=== PATIENT | male | born 1955 | race Caucasian/White ===

== ENCOUNTER → 2021-08-08 | Outpatient (CLI) | payer MEDICARE | LOC: KOH-I 15:10 | DX: M79.671 Pain in right foot (principal); S93.134A Subluxation of interphalangeal joint of right lesser toe(s), initial encounter | CPT/HCPCS: 73630 ==

== ENCOUNTER → 2021-08-23 | Outpatient (CLI) | payer MEDICARE | LOC: KOH-I 08-18 14:00 | DX: S81.801A Unspecified open wound, right lower leg, initial encounter (principal) | CPT/HCPCS: 93926 ==